=== PATIENT | male | born 2000 | race African-American/Black ===

== ENCOUNTER → 2024-04-11 15:30 | Outpatient (CLI) | payer OTHER, SELFPAY ==
[2024-04-11 17:08] LABS: Cortisol Random 2.34 ug/dL
== END ==
PROVIDERS: Referring Provider Internal Medicine; Visit Provider Internal Medicine
DX: I10 Essential (primary) hypertension (principal)
CPT/HCPCS: 36415; 82533

== ENCOUNTER → 2024-04-12 10:09 | Outpatient (CLI) | payer OTHER, SELFPAY ==
[2024-04-17 13:36] LABS: 5-HIAA, Urine 2.1 mg/L (Undefined)
[2024-04-17 18:40] LABS: Aldosterone/Renin Activity Rat 3.4 (.); Plama Renin, LC/MS/MS 0.902 ng/mL/hr (.)
[2024-04-19 06:38] LABS: Metanephrine,Plasma 17.9 pg/mL (0.0-88.0)
== END ==
PROVIDERS: Referring Provider Internal Medicine; Visit Provider Internal Medicine
DX: I10 Essential (primary) hypertension (principal)
CPT/HCPCS: 82088; 82570; 83497; 83835; 84244

== ENCOUNTER → 2024-05-25 13:11 | Outpatient (CLI) | payer OTHER, SELFPAY ==
--- NOTE | 2024-05-25 13:12 | DI.NM.S_ITS ---
PROCEDURE: NM EXERCISE TREADMILL NON NUC COMPARISON: None. INDICATIONS: CHEST PAIN/ESSENTIAL HTN FINDINGS: Patient exercised per the standard Derrick protocol. Total exercise time was 10 minutes and 12 seconds. Test was terminated secondary to fatigue. Maximal heart rate obtained is 189 bpm which is 95% of maximum predicted heart rate. Maximum blood pressure was 208/[place] [address]. BLANCA +34%. 10.9 METS. No ischemic changes noted. No arrhythmias present. Exercise-induced chest pain noted at peak stress with resolution at 5 minutes into recovery. Normal heart rate with hypertensive response to exercise. IMPRESSION: 1. Equivocal exercise treadmill stress test for ischemia due to exercise-induced chest pain without ECG changes. 2. Hypertensive response to exercise. 3. Below average exercise tolerance. Dictated by: Jay Patel M.D. on 05/26/2024 at 16:27 Approved by: Jay Patel M.D. on 05/26/2024 at 16:29
--- NOTE | 2024-05-25 13:12 | DI.US.S_ITS ---
PROCEDURE: US RENAL DOPPLER INDICATIONS: CHEST PAIN AND HYPERTENSION TECHNIQUE: Real time scanning was performed of both kidneys, followed by Color and pulsed Doppler interrogation of the renal vessels. COMPARISON: None. FINDINGS: Aortic peak systolic velocity: 113 cm/s. Right side: Barajas-scale imaging: Kidney is 12.3 cm long. No hydronephrosis. No nephrolithiasis. Renal cortex is normal in echogenicity. No suspicious solid renal masses. Proximal renal artery peak systolic velocity: Not well visualized. Mid renal artery peak systolic velocity: Not well visualized Distal renal artery peak systolic velocity: 180 cm/s. Renal vein: Patent, without thrombus. Peak renal/aortic ratio (RAR): 1.6 Left side: Barajas-scale imaging: Kidney is 12.5 cm long. No hydronephrosis. No nephrolithiasis. Renal cortex is normal in echogenicity. No suspicious solid renal masses. Proximal renal artery peak systolic velocity: Not well visualized Mid-renal artery peak systolic velocity: Not well visualized Distal renal artery peak systolic velocity: 104 cm/s. Renal vein: Patent, without thrombus. Peak renal/aortic ratio (RAR): 0.09 IMPRESSION: The proximal renal arteries are not well visualized due to body habitus and overlying bowel gas. The distal renal arteries do not demonstrate hemodynamically significant stenosis. Dictated by: Guilherme Barrera M.D. on 05/25/2024 at 16:53 Approved by: Guilherme Barrera M.D. on 05/25/2024 at 16:55
--- NOTE | 2024-05-25 13:13 | DI.ECHO.S_ITS ---
[place] [facility] : : [address] : : [place] : : [id number] : : Phone: [phone] Echocardiogram Report + + :Name: LEROY HUERTA Study Date: 05/25/2024 Height: 75 in : :[facility] ReadingLocation: Weight: 270 lb : : Gender: Male BSA: 2.5 m2 : :: 2000 Age: 23 yrs BP: 142/86 mmHg: :Reason For Study: CHEST PAIN, HYPERTENSION : :Ordering Physician: DARIUS PATEL Performed By: Doyle Morgan : :Referring: DARIUS PATEL : + + Interpretation Summary 1. The left ventricular contractility is borderline. Estimate ejection fraction is 50 to 55% with no segmental wall motion abnormalities. Mild concentric LVH. Normal diastolic function. 2. The right ventricular contractility is normal. 3. Mild left atrial enlargement. All other cardiac chambers are of normal size. 4. No significant valvular abnormalities. 5. No obvious intracardiac shunts. 6. No obvious intracardiac masses nor thrombi. 7. No hemodynamically significant pericardial effusion. 8. Low right-sided filling pressures. 9. Borderline enlargement of the aortic root without obvious dissection. Conclusion: Low normal left ventricular systolic function and changes suggestive of hypertensive heart disease. Procedure: A two-dimensional transthoracic echocardiogram with color flow and Doppler was performed. The study quality was technically good. There is no prior echocardiogram noted for this patient. The patient was in normal sinus rhythm during the exam. Left Ventricle: The left ventricle is normal in size. Left ventricular wall thickness is mildly increased. There is no ventricular septal defect visualized. The ejection fraction is estimated to be 50-55%. There are no focal wall motion abnormalities. Diastolic parameters suggest probable normal left ventricular diastolic function and normal filling pressures. Right Ventricle: The right ventricle is normal in size and function. Atria: The left atrium is mildly dilated. Right atrial size is normal. There is no Doppler evidence for an interatrial shunt. Mitral Valve: The mitral valve leaflets appear normal. There is no evidence of stenosis, fluttering, or prolapse. There is no mitral regurgitation noted. Aortic Valve: The aortic valve is trileaflet. The aortic valve opens well. No aortic regurgitation is present. Tricuspid Valve: The tricuspid valve leaflets are thin and pliable. No tricuspid regurgitation. Pulmonic Valve: The pulmonic valve leaflets are thin and pliable; valve motion is normal. There is trace pulmonic regurgitation. Great Vessels: The aortic root is mildly dilated. The ascending aorta is at the upper limits of normal in size. The pulmonary artery is normal size. The IVC is of normal diameter and collapses greater than 50% with a sniff. This suggests a low right atrial pressure of 3 mm Hg. Pericardium/ Pleura There is no pericardial effusion. There is no pleural effusion. MMode/2D Measurements & Calculations LVIDd: 4.9 cm LVOT diam: 2.5 cm LVIDs: 3.4 cm Ao root diam: 4.0 cm FS: 30.8 % asc Aorta Diam: 3.9 cm EPSS: 0.42 cm Ao Arch Diam (Prox Trans): 1.7 cm IVSd: 1.3 cm LVPWd: 1.1 cm LV gong. diameter/BSA (cm/m^2): 2.0 LV sys. diameter/BSA (cm/m^2): 1.4 LA A2 area: 25.1 cm2 RA long axis: 4.6 cm LA A4 area: 21.9 cm2 RA area: 16.6 cm2 LA length (vol): 6.0 cm RA vol: 50.6 ml LA vol: 78.0 ml RA : 20.3 ml/m2 LA vol index: 31.3 ml/m2 IVC diam: 1.2 cm RVD1 (basal): 3.8 cm RVD2 (mid): 2.9 cm TAPSE: 2.5 cm Doppler Measurements & Calculations Ao V2 max: 133.6 cm/sec LVOT Max Jamil: 115.9 cm/sec Ao V2 mean: 95.5 cm/sec LV V1 max P.4 mmHg Ao max P.1 mmHg LV V1 VTI: 21.2 cm Ao mean P.0 mmHg HARRISON(I,D): 4.3 cm2 Ao V2 VTI: 23.6 cm HARRISON(V,D): 4.1 cm2 sev ratio: 0.90 HARRISON indexed to BSA (cm^2/m^2): 1.7 MV E max jamil: 54.2 cm/sec TR max jamil: 12.0 cm/sec MV A max jamil: 48.8 cm/sec TR max P.06 mmHg MV E/A: 1.1 PA V2 max: 71.7 cm/sec Med Peak E' Jamil: 9.0 cm/sec PA V2 mean: 54.1 cm/sec E/E' med: 6.0 PA mean P.3 mmHg Lat Peak E' Jamil: 10.1 cm/sec PA pr(Accel): 37.9 mmHg E/E' lat: 5.4 E/e' average: 5.7 MV dec time: 0.21 sec SV(OT): 101.1 ml Reading Physician:LILIANA
== END ==
PROVIDERS: Referring Provider Internal Medicine; Visit Provider Internal Medicine
DX: R07.9 Chest pain, unspecified (principal); I10 Essential (primary) hypertension; I51.7 Cardiomegaly
CPT/HCPCS: 93017; 93306; 93975